=== PATIENT | female | born 1945 | race Caucasian/White ===

== ENCOUNTER 2017-03-23 09:00 | Day surgery (SDC) | payer MEDICARE ==
--- NOTE | 2017-03-23 11:15 | Operative Note ---
Upper GI Endoscopy Procedure date: 03/23/17 Date of : 41 Procedure:Upper GI Endoscopy Esophagogastroduodenoscopy with cold biopsies Indications: Mrs. Longoria is a 71-year-old female who is here for surveillance upper endoscopy secondary to a history of Rodríguez's esophagus. She is on lansoprazole daily which controls her gastroesophageal reflux disease. She reports no bloating, indigestion, belching or dysphagia. Her last colonoscopy was in 2010 at which time 3 colon polyps were removed. Performing Provider: Denice Garnica MD Referring Provider: Refugio Quezada M.D. Sedation: Fentanyl 100 mg IV/Versed 7 mg IV Procedure: Prior to the procedure, a history and physical exam was performed, and patients medications and allergies were reviewed. The risks and benefits of the procedure and the sedation options and risks were discussed with the patient. All questions were answered and informed consent was obtained. The patient was brought to the procedure room. Patient identification and proposed procedure were verified by the physician and the nurse. The patient was placed in a left lateral decubitus position and the scope was passed under direct vision. Throughout the procedure, the patient's blood pressure, pulse, and oxygen saturations were monitored continuously. The endoscope was introduced through the mouth, and advanced to the second part of duodenum. The upper GI endoscopy was accomplished without difficulty. The patient tolerated the procedure well. Findings: The scope was passed directly into the upper esophagus and advanced to the third portion of the duodenum. The post bulbar duodenum and duodenal bulb were normal with normal mucosa and conniventes. The scope was withdrawn through a normal duodenal bulb and pylorus into the stomach. The remainder of the antrum, body and fundus of the stomach were grossly normal. Upon retroflexion there was a 7-8 cm hiatal hernia. The diaphragmatic hiatus was at 37 cm from the incisors. The gastroesophageal junction was at 29 cm from the incisors. The scope was then withdrawn into the esophagus. There was a short segment of Rodríguez's esophagus ( [place] classification C1M2). Cold biopsies were obtained and sent for histology. Narrow band imaging failed to show any evidence of dysplasia. There was no evidence of reflux esophagitis. Immediate complications: None EBL (ml): 0 Impression: 1. Short segment Rodríguez's esophagus 1-2 cm ([place] classification C1M2) 2. Large hiatal hernia (7-8 cm) without paraesophageal hernia Recommendations: I will follow up the biopsies. I would continue lansoprazole. I would continue surveillance at a 3-5 year interval based on histology. The patient is due for screening/surveillance colonoscopy. at [id number]
[2017-03-23 16:20] VITALS: BP 115/59
== END 2017-03-23 12:40 | disposition home or self-care (01) ==
LOC: SDC 09:00
PROVIDERS: Internal Medicine Gastroenterology
PROC: 0DB58ZX Excision of Esophagus, Via Natural or Artificial Opening Endoscopic, Diagnostic (ICD-10-PCS; principal; 2017-03-23 10:00)
DX: K22.70 Barrett's esophagus without dysplasia (principal); K21.0 Gastro-esophageal reflux disease with esophagitis; K44.9 Diaphragmatic hernia without obstruction or gangrene; Z87.19 Personal history of other diseases of the digestive system; K29.50 Unspecified chronic gastritis without bleeding; Z79.82 Long term (current) use of aspirin; Z79.899 Other long term (current) drug therapy

== ENCOUNTER 2017-05-18 07:48 | Day surgery (SDC) | payer MEDICARE ==
--- NOTE | 2017-05-18 09:41 | Operative Note ---
Colonoscopy ([facility]) Procedure date: 05/18/17 Date of : 41 Procedure:Colonoscopy Colonoscopy with cold snare polypectomy Indications: Mrs. Longoria is a 71-year-old female who is here for follow-up surveillance colonoscopy. The patient's last colonoscopy was 2010 at which time she had 3 colon polyps removed. The patient does state that her sister and mother both had colostomies secondary to acute diverticulitis. The patient herself has had a bout of uncomplicated diverticulitis reports no abdominal pain, weight loss, change in her bowel habits or rectal bleeding. She reports no family history of colon cancer. She does have a history of short segment Rodríguez's esophagus. Performing Provider: Denice Garnica MD Referrring Provider: Refugio Quezada M.D. Sedation: Fentanyl 150 mg IV/Versed 7 mg IV Procedure: Prior to the procedure, a history and physical exam was performed, and patient medications and allergies were reviewed. The risks and benefits of the procedure and the sedation options and risks were discussed with the patient. All questions were answered and informed consent was obtained. Patient identification and proposed procedure were verified by the physician and the nurse. The patient was placed in a left lateral decubitus position. Throughout the procedure, the patient's blood pressure, pulse, and oxygen saturations were monitored continuously. Findings: On digital rectal examination there was normal rectal tone. There were no external hemorrhoids. The colonoscope was introduced through the anal canal to the rectum and advanced to the cecum. The ileocecal valve and appendiceal orifice were identified. The scope was advanced a short distance into the ileum which appeared grossly normal. The scope was then withdrawn into the colon. There were 2 colon polyps identified in the cecum 1 and ascending 1. These ranged in size from 8 and 5 mm respectively and were all removed via cold snare polypectomy. There were scattered diverticuli throughout the descending and sigmoid colon (LEFT colon). The rectum itself was normal. Upon retroflexion within the rectum there were grade 1 internal hemorrhoids. Impressions: 1. Colonic polyps 2 2. Left-sided diverticulosis 3. Grade 1 internal hemorrhoids Recommendations: I will follow up the polyp pathology and recommend repeat colonoscopy again in 5 years based upon the polyp hisology. I would encourage fiber supplementation on a long-term daily maintenance basis. Complications: None EBL (ml): 0 at 0940
[2017-05-18 16:47] VITALS: BP 133/73
== END 2017-05-18 10:40 | disposition home or self-care (01) ==
LOC: SDC 07:48
PROVIDERS: Internal Medicine Gastroenterology
PROC: 0DBH8ZX Excision of Cecum, Via Natural or Artificial Opening Endoscopic, Diagnostic (ICD-10-PCS; 2017-05-18)
PROC: 0DBK8ZX Excision of Ascending Colon, Via Natural or Artificial Opening Endoscopic, Diagnostic (ICD-10-PCS; principal; 2017-05-18 09:00)
DX: Z12.11 Encounter for screening for malignant neoplasm of colon (principal); Z86.010 Personal history of colon polyps; Z83.79 Family history of other diseases of the digestive system; Z87.19 Personal history of other diseases of the digestive system; K63.5 Polyp of colon; K57.30 Diverticulosis of large intestine without perforation or abscess without bleeding; K64.0 First degree hemorrhoids